=== PATIENT | female | born 1985 | race Native Hawaiian/Other Pacific Islander ===

== ENCOUNTER → 2019-09-03 13:50 | Outpatient (BNVA) | payer OTHER, SELFPAY | PROVIDERS: Family Provider Physician Assistant; PCP Physician Assistant; Visit Provider Internal Medicine | DX: M05.9 Rheumatoid arthritis with rheumatoid factor, unspecified (principal); M35.3 Polymyalgia rheumatica; Z79.899 Other long term (current) drug therapy | CPT/HCPCS: 99212; 99213 ==

== ENCOUNTER → 2020-01-27 13:54 | Outpatient (BNVA) | payer OTHER, SELFPAY | PROVIDERS: Family Provider Physician Assistant; PCP Physician Assistant; Visit Provider Internal Medicine | DX: M05.9 Rheumatoid arthritis with rheumatoid factor, unspecified (principal); Z79.899 Other long term (current) drug therapy | CPT/HCPCS: 99212; 99213 ==

== ENCOUNTER → 2020-05-19 13:02 | Outpatient (BNVA) | payer OTHER, SELFPAY | PROVIDERS: Family Provider Physician Assistant; PCP Physician Assistant; Visit Provider Internal Medicine | DX: M05.9 Rheumatoid arthritis with rheumatoid factor, unspecified (principal); Z79.899 Other long term (current) drug therapy | CPT/HCPCS: 99213; 99214 ==

== ENCOUNTER → 2020-10-27 13:28 | Outpatient (BNVA) | payer OTHER, SELFPAY | PROVIDERS: Family Provider Physician Assistant; PCP Physician Assistant; Visit Provider Internal Medicine | DX: M05.9 Rheumatoid arthritis with rheumatoid factor, unspecified (principal); Z79.899 Other long term (current) drug therapy | CPT/HCPCS: 99213 ==

== ENCOUNTER 2022-08-04 00:43 | Emergency (ER) | payer OTHER, SELFPAY ==
[2022-08-04 00:55] VITALS: BP 143/80; PULSE 102; RESP 17; TEMP 37.1; O2SAT 98; BMI 37.5
--- NOTE | 2022-08-04 01:01 | ED_ITS ---
HPI - Abdominal Pain General: Chief Complaint: Abdominal Pain Stated Complaint: abdomen Time Seen by Provider: 08/04/22 00:52 Source: patient Mode of arrival: ambulatory Limitations: no limitations History of Present Illness: 36-year-old female states that over the last day she has been having some dif fuse abdominal cramping with nausea. States not really having any severe pain just some cramping that is diffuse she rates a 3 out of 10 she is felt nauseous has not had any vomiting she denies any dysuria denies any vaginal bleeding or discharge. She denies any diarrhea she denies any worsening improving factors. Associated Symptoms: Reports nausea; Denies chills, dysuria and fever(s) Review of Systems Const: Denies: fever(s), chills or body aches ENMT: Denies: throat pain or dental pain Card: Denies: chest pain Resp: Denies: dyspnea GI: Reports: abdominal pain and nausea : Denies: dysuria Musc: Denies: neck pain or back pain Skin/Breast: Denies: rash Neuro: Denies: headache(s) PFSH ED PFSH: Medical History Seropositive rheumatoid arthritis Family History Other CAD (coronary artery disease) Chronic kidney disease (CKD) Diabetes Rheumatoid arthritis Social History Smoking and tobacco status: never smoked Alcohol intake: never Substance/Drug Use: never Physical Exam Const: COMMON NORMALS: no acute distress, patient oriented x3 and healthy appearing HENMT: COMMON NORMALS: normocephalic and atraumatic HEAD & SCALP: normocephalic and atraumatic Eye: COMMON NORMALS: conjunctivae normal CONJUNCTIVA: Yes conjunctivae normal Neck/C-Spine: COMMON NORMALS: full ROM and supple Chest: COMMONS NORMALS: normal inspection of the chest and normal palpation of entire chest wall Resp: COMMON NORMALS: normal respiratory effort, No retractions, No use of accessory muscles and clear to auscultation bilaterally AUSCULTATION: clear to auscultation bilaterally Cardio: COMMON NORMALS: regular rate, regular rhythm and No murmurs present (Cardio) RATE: regular rate RHYTHM: regular rhythm GI: COMMON NORMALS: Normal to inspection, nondistended, normoactive bowel sounds present, Soft to palpation, non-tender and no masses PALPATION: Yes Soft to palpation Extremity: COMMON NORMALS: normal to inspection and full ROM Neuro: COMMON NORMALS: patient oriented x3, moves all extremities and no focal motor deficits Psych: COMMON NORMALS: mental status grossly normal, Normal thought process present and cooperative THOUGHT PROCESS: Normal thought process present Skin: COMMON NORMALS: no rashes or lesions noted and no wounds GENERAL SKIN EXAM: no rashes or lesions noted Course Vital Signs: Vital signs: Vital Signs Temperature 98.7 F 08/04/22 00:55 Pulse Rate 85 08/04/22 02:00 Respiratory Rate 18 08/04/22 02:00 Blood Pressure 109/65 08/04/22 02:00 Pulse Oximetry 98 08/04/22 02:00 Oxygen Delivery Me thod Room Air 08/04/22 00:55 MDM - Abdominal Pain Medical Decision Making Patient presents here with nausea along with some abdominal cramping she is well-appearing here labs here are normal she has no signs of acute surgical abdomen her abdomen soft and nontender she does not require CT at this time we will prescribe her Zofran for home Zofran did improve her symptoms. She is to follow-up with PCP and return if worsening she understands agrees plan. Medical Records I reviewed the patient's medical records. Lab Data I reviewed the patient's lab results. 08/04/22 01:18 08/04/22 01:18 Labs/Radiology: Laboratory Results WBC 12.3 10^3/uL (4.0-10.0) H 08/04/22 01:18 RBC 5.10 10^6/uL (4.1-5.3) 08/04/22 01:18 Hgb 15.3 g/dL (11.5-15.3) 08/04/22 01:18 Hct 44.5 % (37.0-47.0) 08/04/22 01:18 MCV 87.3 fl (81-99) 08/04/22 01:18 MCH 30.0 pg (28.0-34.0) 08/04/22 01:18 MCHC 34.4 g/dL (30.0-36.0) 08/04/22 01:18 RDW 12.2 % (12.1-15.1) 08/04/22 01:18 Plt Count 303 10^3/cmm (130-400) 08/04/22 01:18 MPV 10.0 fL (7.4-10.4) 08/04/22 01:18 Neut % (Auto) 82.2 % 08/04/22 01:18 Lymph % (Auto) 11.3 % 08/04/22 01:18 [place] % (Auto) 5.9 % 08/04/22 01:18 Eos % (Auto) 0.2 % 08/04/22 01:18 Baso % (Auto) 0.2 % 08/04/22 01:18 Neut # (Auto) 10.06 10^3/uL (1.8-7.7) H 08/04/22 01:18 Lymph # (Auto) 1.4 10^3/uL (0.8-4.8) 08/04/22 01:18 [place] # (Auto) 0.7 10^3/uL (0.2-0.9) 08/04/22 01:18 Eos # (Auto) 0.0 10^3/uL (0.0-0.8) 08/04/22 01:18 Baso # (Auto) 0.0 10^3/uL (0.0-0.1) 08/04/22 01:18 Nucleated RBC % (auto) 0 % 08/04/22 01:18 Nucleated RBCs # 0.0 /100WBC 08/04/22 01:18 Sodium 137 mmol/L (136-145) 08/04/22 01:18 Potassium 4.0 mmol/L (3.5-5.1) 08/04/22 01:18 Chloride 99 mmol/L (98-107) 08/04/22 01:18 Carbon Dioxide 25 mmol/L (22-29) 08/04/22 01:18 Anion Gap 17.0 (5-19) 08/04/22 01:18 BUN 9 mg/dL (6-20) 08/04/22 01:18 Creatinine 0.8 mg/dL (0.5-0.9) 08/04/22 01:18 GFR Calculation 80.7 mL/min (90-130) L 08/04/22 01:18 Glucose 100 mg/dL (65-115) 08/04/22 01:18 Calculated Osmolality 283 mOsm/kg (285-295) L 08/04/22 01:18 Calcium 9.6 mg/dL (8.5-10.5) 08/04/22 01:18 Total Bilirubin 0.5 mg/dL (0.15-1.2) 08/04/22 01:18 AST 10 U/L (0-32) 08/04/22 01:18 ALT 14 U/L (0-33) 08/04/22 01:18 Alkaline Phosphatase 62 U/L (35-105) 08/04/22 01:18 Total Protein 7.2 g/dL (6.6-8.7) 08/04/22 01:18 Albumin 4.5 g/dL (3.5-5.2) 08/04/22 01:18 Globulin 2.7 g/dL (1.3-4.6) 08/04/22 01:18 Lipase 19 U/L (13-60) 08/04/22 01:18 HCG, Qual Negative (Negative) 08/04/22 01:18 Urine Color Yellow (Yellow) 08/04/22 01:22 Urine Appearance Clear (CLEAR) 08/04/22 01:22 Urine pH 6 (5-7) 08/04/22 01:22 Ur Specific [place] 1.020 (1.005-1.030) 08/04/22 01:22 Urine Protein Neg (Negative) 08/04/22 01:22 Urine Glucose (UA) Norm (Normal) 08/04/22 01:22 Urine Ketones 1+ (Negative) H 08/04/22 01:22 Urine Blood Neg (Negative) 08/04/22 01:22 Urine Nitrate Negative (Negative) 08/04/22 01:22 Urine Bilirubin Neg (Negative) 08/04/22 01:22 Urine Urobilinogen Neg mg/dL (Negative) 08/04/22 01:22 Ur Leukocyte Esterase Negative (Negative) 08/04/22 01:22 Discharge Plan Discharge Patient Disposition: Home Clinical Impression: Abdominal pain, Nausea Condition: Stable Prescriptions: New ondansetron 4 mg tablet,disintegrating 4 mg PO Q6H PRN (Reason: nausea and vomiting) Qty: 14 0RF No Action ferrous sulfate [Feosol] 325 mg (65 mg iron) tablet 325 mg PO DAILY lisinopril 10 mg tablet 10 mg PO DAILY hydroxychloroquine 200 mg tablet 200 mg PO BID 30 Days Qty: 180 1RF Discharge Orders: Discharge ED (Routine); Ordered 08/04/22 Ordered By: Guanaco Walsh Referrals: Iqra Torres PA [Primary Care Provider] - 1-3 days Discharge Diet: Advance as tolerated Discharge Activity: Resume usual activity Patient Instructions: Abdominal Pain (ED) Coding Level of Care Code ED Pain Management Nurse Practitioner for Felipe Leo
[2022-08-04 01:23] LABS: Basophils % 0.2 %; Eosinophils % 0.2 %; Hematocrit 44.5 % (37.0-47.0); Hemoglobin 15.3 g/dL (11.5-15.3); Lymphocytes # 1.4 10^3/uL (0.8-4.8); Lymphocytes % 11.3 %; Mean Corpuscular HGB Conc 34.4 g/dL (30.0-36.0); Mean Corpuscular Volume 87.3 fl (81-99); Monocytes # 0.7 10^3/uL (0.2-0.9); Monocytes % 5.9 %; Neutrophils # 10.06 10^3/uL (1.8-7.7); Neutrophils % 82.2 %; Nucleated Red Blood Cells % 0 %; Platelet Count 303 10^3/cmm (130-400); Red Cell Distribution Width 12.2 % (12.1-15.1); White Blood Count 12.3 10^3/uL (4.0-10.0)
[2022-08-04] MEDS: sodium chloride 0.9% 1,000 ML 999 ML IV (01:25)
[2022-08-04 01:33] LABS: Add Urine Microscopic? NO; Charge for UA Resulting for Rev
[2022-08-04 01:37] LABS: HCG, Serum Qual Negative (Negative)
[2022-08-04 01:37] LABS: Bilirubin Urine Neg (Negative); Blood Urine Neg (Negative); Glucose Urine UA Norm (Normal); Ketones Urine 1+ (Negative); Leukocyte Esterase Urine Negative (Negative); Nitrate Urine Negative (Negative); Protein Urine Neg (Negative); Urine Appearance Clear (CLEAR); Urine Color Yellow (Yellow); Urobilinogen Urine Neg (Negative); pH Urine 6 (5-7)
[2022-08-04 01:42] LABS: Alanine Aminotransferase 14 U/L (0-33); Albumin Level 4.5 g/dL (3.5-5.2); Alkaline Phosphatase 62 U/L (35-105); Aspartate Amino Transferase 10 U/L (0-32); Blood Urea Nitrogen 9 mg/dL (6-20); Calcium 9.6 mg/dL (8.5-10.5); Carbon Dioxide 25 mmol/L (22-29); Chloride 99 mmol/L (98-107); Creatinine Clr Calc Pharmacy 122.3645; Globulin 2.7 g/dL (1.3-4.6); Glomerular Filtration Rate 80.7 mL/min (90-130); Glucose 100 mg/dL (65-115); Lipase 19 U/L (13-60); Osmolality Calculated 283 mOsm/kg (285-295); Sodium 137 mmol/L (136-145); Total Bilirubin 0.5 mg/dL (0.15-1.2); Total Protein 7.2 g/dL (6.6-8.7)
[2022-08-04 02:00] VITALS: BP 109/65; PULSE 85; RESP 18; O2SAT 98
[2022-08-04] MEDS: ondansetron 2 mg/ML SDV 2 mL 4 MG IVP (02:03)
[2022-08-04] MEDS: dicyclomine 20 mg Tablet PO (02:03)
[2022-08-04 02:55] VITALS: BP 115/58; PULSE 75; RESP 24; O2SAT 98
== END 2022-08-04 02:57 | disposition home or self-care (01) ==
PROVIDERS: Emergency Provider Emergency Medicine; PCP Physician Assistant
DX: R10.9 Unspecified abdominal pain (principal); R11.0 Nausea
CPT/HCPCS: 80053; 81003; 83690; 84703; 85025; 96361; 96374; 99284; J2405; J7030

== ENCOUNTER 2022-12-29 09:17 | Outpatient (CLI) | payer OTHER, SELFPAY ==
--- NOTE | 2022-12-29 09:30 | MM_ITS ---
WS: [id number] BILATERAL SCREENING DIGITAL TOMOSYNTHESIS MAMMOGRAM WITH CAD HISTORY: SCREENING COMPARISON: 05/18/2017 Bilateral CC and MLO views with tomosynthesis and synthetic mammography submitted. Computer aided det ection analyzed. Breast composition: There are scattered areas of fibroglandular density. No suspicious masses, microc alcifications or architectural distortion. IMPRESSION: MM/[place] [id number] BI-RADS: 1-Negative FOLLOW UP: 1 Year Follow-up
== END 2022-12-29 09:18 | disposition home or self-care (01) ==
LOC: MOBLMAM 09:19
PROVIDERS: PCP Physician Assistant; Visit Provider Physician Assistant
DX: Z12.31 Encounter for screening mammogram for malignant neoplasm of breast (principal)
CPT/HCPCS: 77063; 77067

== ENCOUNTER → 2023-01-26 07:59 | Outpatient (BNVA) | payer OTHER, SELFPAY | PROVIDERS: PCP Physician Assistant; Visit Provider Nurse Practitioner Family | DX: L81.1 Chloasma (principal); L82.1 Other seborrheic keratosis; D22.62 Melanocytic nevi of left upper limb, including shoulder; L57.8 Other skin changes due to chronic exposure to nonionizing radiation | CPT/HCPCS: 99204 ==

== ENCOUNTER → 2023-07-28 08:30 | Outpatient (BNVA) | payer OTHER, SELFPAY | PROVIDERS: PCP Physician Assistant; Visit Provider Nurse Practitioner Family | DX: L81.1 Chloasma (principal); L82.1 Other seborrheic keratosis; D22.62 Melanocytic nevi of left upper limb, including shoulder; L57.8 Other skin changes due to chronic exposure to nonionizing radiation | CPT/HCPCS: 99214 ==

== ENCOUNTER → 2023-08-02 09:19 | Outpatient (BNVA) | payer OTHER, SELFPAY | PROVIDERS: PCP Physician Assistant; Visit Provider Internal Medicine Rheumatology | DX: M05.9 Rheumatoid arthritis with rheumatoid factor, unspecified (principal); Z79.899 Other long term (current) drug therapy | CPT/HCPCS: 99214 ==

== ENCOUNTER 2024-01-17 09:20 | Outpatient (CLI) | payer OTHER, SELFPAY ==
--- NOTE | 2024-01-17 09:20 | MM_ITS ---
WS: [id number] BILATERAL SCREENING DIGITAL TOMOSYNTHESIS MAMMOGRAM WITH CAD HISTORY: SCREENING COMPARISON: 12/29/2022, 05/18/2017 Bilateral CC and MLO views with tomosynthesis and synthetic mammography submitted. Computer aided det ection analyzed. Breast composition: The breasts are heterogeneously dense, which may obscure small masses. No suspici ous masses, microcalcifications or architectural distortion. MM/MM [facility] tomosynthesis [id number] IMPRESSION: BI-RADS: 1 - Negative FOLLOW UP: 1 Year Follow-up
== END 2024-01-17 09:21 | disposition home or self-care (01) ==
LOC: MOBLMAM 09:21
PROVIDERS: PCP Physician Assistant; Visit Provider Physician Assistant
DX: Z12.31 Encounter for screening mammogram for malignant neoplasm of breast (principal); R92.333 Mammographic heterogeneous density, bilateral breasts
CPT/HCPCS: 77063; 77067

== ENCOUNTER 2024-08-09 09:15 | Outpatient (CLI) | payer OTHER, SELFPAY ==
--- NOTE | 2024-08-09 09:21 | USR_ITS ---
PROCEDURE INFORMATION: Exam: US Duplex Lower Extremity Veins, Bilateral Exam date and time: 08/09/2024 9:42 AM Age: 38 years old Clinical indication: Varicose veins of lower extremities; Asymptomatic; Additional info: Uncomplicated varicose veins TECHNIQUE: Imaging protocol: Real-time duplex ultrasound of the bilateral extremities with 2-D nunn scale, color Doppler flow and spectral waveform analysis including responses to compression and other maneuvers (when performed) with image documentation. Complete exam focused on the lower extremity veins. COMPARISON: No relevant prior studies available. FINDINGS: Right deep veins: Unremarkable. The common femoral, femoral, proximal profunda femoral and popliteal veins are patent without thrombus. Normal Doppler waveforms. Normal compressibility and/or augmentation response. Left deep veins: Unremarkable. The common femoral, femoral, proximal profunda femoral and popliteal veins are patent without thrombus. Normal Doppler waveforms. Normal compressibility and/or augmentation response. Superficial veins: Greater saphenous veins at the saphenofemoral junctions are patent bilaterally without thrombus. Soft tissues: Unremarkable. Reflux times are as follows: RIGHT SFJ: 1.1 seconds RIGHT MID GSV: 1.39 seconds RIGHT GSV DISTAL: .59 seconds LEFT CFV: .85 seconds LEFT SFV: 1.72 seconds US/CV ronnie dup insuff [facility] [id number] IMPRESSION: No evidence of deep vein thrombosis. Reflux times as above.
== END 2024-08-09 09:16 | disposition home or self-care (01) ==
LOC: RAD 09:17
PROVIDERS: PCP Physician Assistant; Visit Provider Nurse Practitioner Family
DX: I83.90 Asymptomatic varicose veins of unspecified lower extremity (principal)
CPT/HCPCS: 93970

== ENCOUNTER 2025-02-18 09:56 | Outpatient (CLI) | payer OTHER, SELFPAY ==
--- NOTE | 2025-02-18 10:00 | MM_ITS ---
WS: [id number] BILATERAL 3D TOMOSYNTHESIS DIGITAL SCREENING MAMMOGRAPHY WITH CAD CLINICAL INFORMATION: SCREENING HISTORY: Screening mammogram. No current complaints. COMPARISON: 2023 TECHNIQUE: Bilateral CC and MLO views. FINDINGS: The breasts are composed of heterogeneous fibroglandular density tissue, which can limit the detection of small underlying mass lesions. No suspicious mass, asymmetry, calcifications, or architectural distortion. No evidence of malignancy. Stable nodularity LEFT breast. MM/MM [facility] tomosynthesis [id number] IMPRESSION: DENSITY: The breasts are heterogeneously dense, which may obscure small masses. BI-RADS: 2 - Benign FOLLOW UP: 1 Year Follow-up Recommend return to annual screening mammography.
== END 2025-02-18 09:57 | disposition home or self-care (01) ==
LOC: MOBLMAM 09:59
PROVIDERS: PCP Physician Assistant; Visit Provider Physician Assistant
DX: Z12.31 Encounter for screening mammogram for malignant neoplasm of breast (principal); R92.323 Mammographic fibroglandular density, bilateral breasts; R92.333 Mammographic heterogeneous density, bilateral breasts; N63.20 Unspecified lump in the left breast, unspecified quadrant
CPT/HCPCS: 77063; 77067